=== PATIENT | female | born 1995 | race Caucasian/White ===

== ENCOUNTER 2018-05-06 19:15 | Emergency (ER) | payer OTHER ==
[2018-05-06] MEDS: KETOROLAC 60 MG INJ IM (20:12)
== END 2018-05-06 22:48 | disposition left against medical advice (07) ==
LOC: FTE 19:15
DX: R07.89 Other chest pain (principal); R07.81 Pleurodynia; F17.210 Nicotine dependence, cigarettes, uncomplicated
CPT/HCPCS: 71045; 81025; 96372; 99284-25